=== PATIENT | female | born 2000 | race Caucasian/White ===

== ENCOUNTER 2018-05-25 14:27 | Emergency (ER) | payer SELFPAY ==
[2018-05-25 14:47] VITALS: BP 135/79
--- NOTE | 2018-05-25 16:02 | UC ---
UC General HPI - HPI Summary HPI Summary: PT C/O "PAINS IN MY STOMACH" ON AND OFF X3 WEEKS. PT POINTS TO HER RUQ. THE PAIN OCCURS AT RANDOM AND IS NOT SPECIFIC TO MEALS. IT MAY BE FLEETING OR PROLONGED IN DURATION. NOTHING MAKES IT BETTER OR WORSE WHEN PRESENT. NO HX OF INJURY OR OVER USE. ADMITS TO OCCASIONAL NAUSEA BUT DENIES ANY VOMITING, DIARRHEA AND BLACK OR TARRY STOOLS. NO HX IBD. ADMITS TO OCCASIONAL HEART BURN. PT ALSO NOTES SOME EPISODIC PAINS IN R SIDE OF BACK WELL. NO INJURY, NO PAIN IN SPINE, NO NUMB/WEAK EXTREMITIES, BOWEL/BLADDER DYSFUNCTION OR SADDLE ANESHTESIA. PT DENIES ANY CURRENT ABDOMINAL OR BACK PAIN AT TIME OF EXAM. - History of Current Complaint Chief Complaint: UCAbdominalPain Stated Complaint: ABD PAIN Time Seen by Provider: 05/25/18 15:38 Hx Obtained From: Patient, Family/Biophysics Professor Hx Last Menstrual Period: 27 days ago Current Severity: None Pain Intensity: 0 Associated Signs & Symptoms: Negative: Cough, Chest Pain, Dysuria, SOB, Wheezing - Allergy/Home Medications Allergies/Adverse Reactions: Allergies Allergy/AdvReac Type Severity Reaction Status Date / Time No Known Allergies Allergy Verified 05/25/18 14:48 Home Medications: Home Medications 7-17 Maxi-Charge 1 dose PO DAILY 05/25/18 [History Confirmed 05/25/18] Hormone Boost 1 dose PO TID 05/25/18 [History Confirmed 05/25/18] Kidney Bladder Formula 1 dose PO TID 05/25/18 [History Confirmed 05/25/18] PMH/Surg Hx/FS Hx/Imm Hx Previously Healthy: Yes - Surgical History Surgical History: None - Family History Known Family History: Positive: None - Social History Occupation: Works From/At Home - [employer] Lives: With Family Alcohol Use: None Substance Use Type: None Smoking Status (MU): Never Smoked Tobacco Review of Systems All Other Systems Reviewed And Are Negative: Yes Constitutional: Positive: Negative Skin: Positive: Negative Eyes: Positive: Negative ENT: Positive: Negative Respiratory: Positive: Negative Cardiovascular: Negative: Chest Pain Gastrointestinal: Positive: Abdominal Pain, Nausea. Negative: Vomiting, Diarrhea Genitourinary: Negative: Dysuria, Hematuria, Frequency, Urgency, Vaginal/Penile Burning Motor: Positive: Negative Neurovascular: Positive: Negative Musculoskeletal: Positive: Other: - R BACK PAINS Neurological: Positive: Negative Psychological: Positive: Negative Physical Exam Triage Information Reviewed: Yes Appearance: Well-Appearing Vital Signs: Initial Vital Signs Temp 99.2 F 05/25/18 14:36 Pulse 92 05/25/18 14:36 Resp 20 05/25/18 14:36 BP 135/79 05/25/18 14:36 Pulse Ox 100 05/25/18 14:36 Vital Signs Reviewed: Yes Eyes: Positive: Conjunctiva Clear ENT: Positive: Pharynx normal, TMs normal. Negative: Nasal congestion, Nasal drainage Neck: Positive: Supple, Nontender, No Lymphadenopathy Respiratory: Positive: Lungs clear, Normal breath sounds Cardiovascular: Positive: RRR, No Murmur Abdomen Description: Positive: Nontender, No Organomegaly, Soft. Negative: CVA Tenderness (R), CVA Tenderness (L), Distended, Guarding, Pulsatile Mass Bowel Sounds: Positive: Present Musculoskeletal: Positive: Other: - BACK: NO GROSS DEFORMITY, SWELLING, DISCOLORATION OR RASH. NO SPINAL TENDERNESS TO PALPATION. ROM IS INTACT. 5/5 STRENGTH, 2+REFLEXES, SENSATION INTACTX4. NO SADDLE ANESHTESIA. STEADY GAIT. Neurological: Positive: Alert Psychological: Positive: Normal Response To Family, Age Appropriate Behavior Skin Exam: Normal Skin: Negative: Rashes Course/Dx - Course Course Of Treatment: NORMAL EXAM AT THIS TIME. - Differential Dx - Multi-Symptom Differential Diagnoses: Other - NO CONCERN FOR CARDIOPULMONARY PATHOLOGY OR AA. NORMAL EXAM AT THIS TIME. DOUBT RENAL COLIC. HCG IS NEGATIVE AND U/A IS UNREMARKABLE.BILIARY COLIC AND GERD ARE POSSIBLE THUS WILL TX WITH LOW FAT DIET AND PPI. NO INDICATION FOR EMERGENT ER TRANSFER AT THIS TIME. PT AND AGREE TO CLOSE F/U [facility] AND GO TO ER FOR CHANGES OR WORSENING. - Diagnoses Provider Diagnosis: Normal exam Discharge - Sign-Out/Discharge Documenting (check all that apply): Patient Departure All imaging exams completed and their final reports reviewed: No Studies - Discharge Plan Condition: Stable Disposition: HOME Patient Education Materials: Low Fat Diet (ED), Abdominal Pain (ED) Referrals: [facility] [place],[facility] [Medical Doctor] - As Soon As Possible Additional Instructions: GO TO ER FOR CHANGES OR WORSENING. TAKE AN ACID PRETTY SUCH OMEPRAZOLE(OVER THE COUNTER). TAKE DIRECTED ON LABEL. - Billing Disposition and Condition Condition: STABLE Disposition: Home - Attestation Statements Provider Attestation: Per institutional requirements, I have reviewed the chart, however, I was not consulted specifically or made aware of this patient by the midlevel provider. I did not personally evaluate, interact with , or disposition this patient
== END 2018-05-25 16:08 | disposition home or self-care (01) ==
LOC: UCCORT 14:27
DX: Z03.89 Encounter for observation for other suspected diseases and conditions ruled out (principal)
CPT/HCPCS: 81003; 84702; 99201; G0463